=== PATIENT | female | born 1995 | race Hispanic/Latino ===

== ENCOUNTER 2024-12-26 18:14 | Emergency (ER) | payer OTHER ==
[~2024-12-26] VITALS: Ht 154.9 cm; Wt 108.4 kg
[2024-12-26 18:15] VITALS: TEMP 98.7
[2024-12-26 18:58] LABS: BASOPHILS % 0.8 % (0.0-1.0); EOSINOPHILS % 1.7 % (0.0-6.0); LYMPHOCYTES % 23.7 % (18.0-39.1); MONOCYTES % 8.0 % (4.4-11.3); NEUTROPHILS % 65.6 % (38.7-80.0); RED CELL DISTRIBUTION WIDTH 12.8 % (11.7-14.4)
[2024-12-26] MEDS: KETOROLAC TROMETHAMINE 30 MG/ML VIAL IV STA (19:11)
[2024-12-26] MEDS: LACTATED RINGER'S 1,000 ML INJ ONE (19:11)
[2024-12-26 19:20] LABS: EST GLOMERULAR FILTRATION RATE 124.0 ML/MIN (>=60)
[2024-12-26] MEDS ORDERED: NAPROXEN375 MG PO (19:39)
[2024-12-26 19:44] VITALS: PULSE 88; RESP 16
[2024-12-26 20:00] VITALS: BP 135/79; PULSE 94; RESP 16; TEMP 97.8; O2SAT 100
== END 2024-12-26 19:55 | disposition home or self-care (01) ==
LOC: ER 18:20
DX: M25.511 Pain in right shoulder (principal); M79.652 Pain in left thigh; M79.651 Pain in right thigh; X50.9XXA Other and unspecified overexertion or strenuous movements or postures, initial encounter; Y92.488 Other paved roadways as the place of occurrence of the external cause
CPT/HCPCS: 36415; 80048; 85025; 93005; 99284; J1885; J7121